=== PATIENT | female | born 1965 | race Caucasian/White ===

== ENCOUNTER 2025-01-06 06:37 | Day surgery (SDC) | payer MEDICAID, SELFPAY ==
[2025-01-05 11:29] VITALS: BMI 26.6
[2025-01-06] VITALS (13 sets, daily range): BP systolic 122–154; BP diastolic 71–130; PULSE 83–93; RESP 16–22; TEMP 36.5–36.7; O2SAT 93–98; BMI 26.7
[2025-01-06] MEDS: SODIUM CHLORIDE 0.9% 500 ML 500 ML 125 ML IV (07:44)
[2025-01-06] MEDS: fentaNYL CIT INJ 50 mCg/ML AMP 2ML (ASD USE ONLY) IVP (07:55)
[2025-01-06] MEDS: MIDAZOLAM INJ 1 MG/ML VIAL 2 ML (ASD USE ONLY) 2 MG IVP (08:04)
--- NOTE | 2025-01-06 09:29 | SUR.PHASEII ---
855 Pt more awake and alert. Denies pain or N/V. Abd remains soft. Pt cont to pass flatus. No active rectal bleeding seen. Marcin Po fluids. 0915 Pt assessment unchanged.No complaints. Abd remains soft-no bleeding seen. Pt remains seizure free. Pt amb with steady gait. assisted with pt getting dressed. DC instructions given. Pt and aware of no Plavix for 3 days. Both state understanding. Neuro device remains to left chest. Pt meets dc criteria-to home.
== END 2025-01-06 09:15 | disposition home or self-care (01) ==
PROVIDERS: PCP Registered Nurse; Referring Provider Surgery; Visit Provider Surgery
PROC: 0DBE8ZX Excision of Large Intestine, Via Natural or Artificial Opening Endoscopic, Diagnostic (ICD-10-PCS; CPT 45380; principal; 2025-01-06 08:00)
DX: D12.3 Benign neoplasm of transverse colon (principal); K62.5 Hemorrhage of anus and rectum; K56.690 Other partial intestinal obstruction; Z80.0 Family history of malignant neoplasm of digestive organs; F41.9 Anxiety disorder, unspecified; J44.9 Chronic obstructive pulmonary disease, unspecified; F32.A Depression, unspecified; E78.00 Pure hypercholesterolemia, unspecified; Z79.899 Other long term (current) drug therapy; Z79.02 Long term (current) use of antithrombotics/antiplatelets; D12.5 Benign neoplasm of sigmoid colon
CPT/HCPCS: 45385; 45381; 45380; A4649; J2250; J3010; J7999

== ENCOUNTER 2025-03-05 10:11 | Inpatient (IN) | payer MEDICAID, SELFPAY ==
--- NOTE | 2025-03-04 07:55 | EKG_ITS ---
[facility] Test Date: 2025-03-04 Pat Name: CHIRAG GUY Department: Room: - Gender: Female Gimp Tacker: JUAN JOSÉ : 1965 Requested By: Kana Mancini Order Number: [id number] Reading MD: Kana Mancini Measurements Intervals [place] Rate: 89 P: 33 NM: 108 QRS: 115 QRSD: 108 T: 61 QT: 387 QTc: 472 Interpretive Statements SINUS RHYTHM WITH SHORT NM INTERVAL INCOMPLETE RIGHT BUNDLE BRANCH BLOCK [90+ ms QRS DURATION, TERMINAL R IN V1/V2, 40+ ms S IN I/aVL/V4/V5/V6] POSSIBLE RIGHT VENTRICULAR HYPERTROPHY [SOME/ALL OF: PROMINENT R IN V1, LATE TRANSITION, RAD, JOAO, SSS] No previous ECG available for comparison /store/S0/[id number]/ecg/[id number].pdf
[2025-03-04 08:06] VITALS: BMI 28.5
[2025-03-04 09:54] LABS: Basophils # (Auto) 0.1 Thou/mm3 (0.0-0.2); Basophils % (Auto) 1 % (0-2.5); Eosinophils # (Auto) 0.1 Thou/mm3 (0.0-0.5); Eosinophils % (Auto) 1 % (0-10); Hematocrit 44.6 % (36.0-46.0); Hemoglobin 14.6 g/dL (12.0-16.0); Immature Granulocytes Auto 0.04 Thou/mm3 (0.00-0.00); Lymphocytes # (Auto) 2.1 Thou/mm3 (1.0-4.8); Lymphocytes % (Auto) 22 % (10-50); Mean Corpuscular HGB Conc 32.7 g/dl (31.0-37.0); Mean Corpuscular Hemoglobin 30.1 pg (25.0-35.0); Mean Corpuscular Volume 92 fL (80-100); Monocytes # (Auto) 0.6 Thou/mm3 (0.0-0.8); Monocytes % (Auto) 6 % (0-12); Neutrophils # (Auto) 7.0 Thou/mm3 (1.8-7.7); Neutrophils % (Auto) 70 % (37-80); Nucleated Red Blood Cell # 0.00 Thou/mm3 (0.00-0.00); Nucleated Red Blood Cell % 0 /100 WBC (0); Platelet Count 324 Thou/mm3 (140-440); RDW Standard Deviation 43.8 fL (36.4-46.3); Red Blood Count 4.85 Miln/mm3 (4.00-5.20); White Blood Count 9.9 Thou/mm3 (3.6-11.0)
[2025-03-04 10:06] LABS: Alanine Aminotransferase 26 U/L (10-49); Albumin, Serum 4.8 gm/dL (3.5-5.0); Albumin/Globulin Ratio 1.9 (1.2-2.2); Alkaline Phosphatase 174 U/L (46-116); Anion Gap 8 (7-16); Aspartate Amino Transferase 23 U/L (0-34); BUN/Creatinine Ratio 12 Ratio (12-20); Bilirubin,Total 0.3 mg/dL (0.3-1.2); Blood Urea Nitrogen 11 mg/dL (9-23); Calcium 9.7 mg/dL (8.3-10.6); Calcium (Corrected) 9.7 mg/dL (8.5-10.1); Carbon Dioxide 28.8 mMol/L (20.0-31.0); Chloride 107 mMol/L (98-107); Creatinine (Component) 0.9 mg/dL (0.6-1.3); Estimated Creatinine Clearance 66.0 mL/min (>60); Globulin 2.5 gm/dL (2.3-3.5); Glucose 103 mg/dL (74-106); Osmolality,Calculated 286 (275-295); Potassium 3.9 mMol/L (3.4-5.1); Sodium 144 mMol/L (136-145); Total Protein 7.3 gm/dL (5.7-8.2); eGFR > 60 See Note
[2025-03-05] VITALS (13 sets, daily range): BP systolic 93–125; BP diastolic 49–83; PULSE 84–96; RESP 14–23; TEMP 36.2–36.8; O2SAT 91–96; BMI 28.3
[2025-03-05] MEDS: RINGERS LACTATED 1000 ML 1,000 ML 20 ML IV (11:09)
--- NOTE | 2025-03-05 15:18 | SUR.PHASEI ---
pt received from OR in recovery bay 3. pt asleep but responds to voice, breathing unlabored on oxymask 8l, nasal airway in place. v/s stable. pt dressing to abd cdi. report received from Dr. Oconnell and Heike CERVANTES.
--- NOTE | 2025-03-05 15:18 | PD.SUROPNT ---
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 The bladder was densely adherent to sigmoid colon Anesthesia GETA Pathology / specimen Other (Sigmoid colon) Estimated Blood Loss 50 Condition Stable Disposition PACU Surgeon Kana Mancini MD Surgical Staff Operation Date: 03/05/25 12:40 Case cylinder head assemblerstore clerk cashier: Stephany Velarde
[2025-03-05] MEDS: HYDROmorphone 1 MG/ML PCA SYRINGE 30ML PCA (15:32)
[2025-03-05] MEDS: KCL 20 mEq/L in D5-1/2NS 20 MEQ/1,000 ML BAG 70 MEQ IV (15:49)
[2025-03-05] MEDS: ALBUTEROL RT 2.5 MG/3 ML NEBU INH (16:14)
--- NOTE | 2025-03-05 16:45 | SUR.PHASEII ---
pt asleep but responds to voice, breathing unlabored on nc 4l. v/s stable. pt dressing to abd cdi, abd binder in place. mac cath in place. sz precautions in place. report called to Alice CERVANTES. pt will be transferred to room at this time.
--- NOTE | 2025-03-05 17:42 | PC.NURSE ---
WIll hand off to shift coordinator nurse when patients wakes up to do admit questions and med req.
[2025-03-05] MEDS: ACETAMINOPHEN IVPB 1,000 MG/100 ML VIAL 250 MG IV (18:10)
[2025-03-05] MEDS: CEFOXITIN 2 GM in SODIUM CHLORIDE 0.9% (Popper) 50 ML IV (18:11)
--- NOTE | 2025-03-05 20:08 | PC.NURSE ---
called pharmacy to ask if they wanted me to hang IV tylenol since the first dose ordered for 1642 was given at 1809, Livia in pharmacy stated that they will adjust the time to give the second dose 6 hrs after the fisrt dose was given.
--- NOTE | 2025-03-05 20:16 | PC.NURSE ---
called Dr. Mancini to ask if he wanted me to give po meds to pt since pt is NPO. Per , pt could have po med with sip of water.
[2025-03-05] MEDS: ASCORBIC ACID 250 MG TABLET 500 MG PO (20:34)
[2025-03-05] MEDS: TOPIRAMATE 25 MG TABLET PO (20:34)
[2025-03-05] MEDS: DOCUSATE SOD 100 MG CAPSULE PO (20:34)
[2025-03-05] MEDS: ALBUTEROL/IPRATROPIUM (Duoneb) RT SOL 3 ML NEBU INH (23:00)
[2025-03-06] VITALS (12 sets, daily range): BP systolic 97–126; BP diastolic 65–85; PULSE 74–90; RESP 14–24; TEMP 36.1–36.5; O2SAT 93–98; BMI 28.3
[2025-03-06] MEDS: CEFOXITIN 2 GM in SODIUM CHLORIDE 0.9% (Popper) 50 ML IV ×4 (00:14→18:08)
[2025-03-06] MEDS: ACETAMINOPHEN IVPB 1,000 MG/100 ML VIAL 250 MG IV ×3 (00:14→12:13)
[2025-03-06] MEDS: ALBUTEROL/IPRATROPIUM (Duoneb) RT SOL 3 ML NEBU INH ×3 (06:02→23:06)
--- NOTE | 2025-03-06 09:13 | PD.SURPROG ---
Documentation for date of: 03/06/25 Subjective Subjective Narrative: Patient is seen and examined. She is complaining of incisional pain, controlled with SUPERVISOR MOLD CLEANING AND STORAGE. She denies nausea or vomiting. Has not passed flatus or bowel movement yet Exam Vital Signs Temp Pulse Resp BP Pulse Ox O2 Del Method O2 Flow Rate 97.1 F 90 17 100/85 H 94 L Nasal Cannula 2 03/06/25 08:00 03/06/25 08:00 03/06/25 08:00 03/06/25 08:00 03/06/25 08:00 03/06/25 08:00 03/06/25 08:00 Constitutional Constitutional: no acute distress Routine Abdominal Exam Comments: Abdomen is soft and mildly distended. Incision with dressings clean, dry and intact. Bowel sounds are absent today Assessment & Plan Assessment Additional comments: Postop day #1 status post exploratory laparotomy with sigmoid colectomy and repair of bladder injury Plan Continue IV antibiotics. Keep Gray catheter for 2 weeks. Start ice chips. Use incentive spirometer and increase ambulation PROCEDURES: Procedures Attempted laparoscopic, open sigmoid colectomy Repair of bladder injury
[2025-03-06] MEDS: ENOXAPARIN SOD INJ 40 MG/0.4 ML SYRINGE SC (09:50)
[2025-03-06] MEDS: NICOTINE PATCH 21 MG/24 HR PATCH.TD24 TOP (09:50)
[2025-03-06] MEDS: ZINC SULFATE 220 MG CAPSULE PO (09:51)
[2025-03-06] MEDS: ATORVASTATIN CALCIUM 20 MG TABLET 80 MG PO (09:51)
[2025-03-06] MEDS: ASCORBIC ACID 250 MG TABLET 500 MG PO ×2 (09:51→20:46)
[2025-03-06] MEDS: PROPRANOLOL 10 MG TABLET 20 MG PO (09:52)
[2025-03-06] MEDS: DOCUSATE SOD 100 MG CAPSULE PO ×2 (09:52→20:47)
[2025-03-06] MEDS: TOPIRAMATE 25 MG TABLET PO ×2 (09:52→20:46)
[2025-03-06] MEDS: KCL 20 mEq/L in D5-1/2NS 20 MEQ/1,000 ML BAG 50 MEQ IV (18:08)
[2025-03-07] VITALS (10 sets, daily range): BP systolic 103–122; BP diastolic 50–72; PULSE 71–107; RESP 13–22; TEMP 36.1–37; O2SAT 89–99
[2025-03-07] MEDS: CEFOXITIN 2 GM in SODIUM CHLORIDE 0.9% (Popper) 50 ML IV ×4 (00:59→17:43)
[2025-03-07] MEDS: HYDROmorphone 1 MG/ML PCA SYRINGE 30ML PCA ×2 (01:22→17:29)
--- NOTE | 2025-03-07 01:52 | PC.NURSE ---
19.2 ML of dilaudid wasted in the pyxis with Erica CERVANTES
[2025-03-07 06:06] LABS: Basophils # (Auto) 0.0 Thou/mm3 (0.0-0.2); Basophils % (Auto) 0 % (0-2.5); Eosinophils # (Auto) 0.1 Thou/mm3 (0.0-0.5); Eosinophils % (Auto) 1 % (0-10); Hematocrit 36.5 % (36.0-46.0); Hemoglobin 11.1 g/dL (12.0-16.0); Immature Granulocytes Auto 0.03 Thou/mm3 (0.00-0.00); Lymphocytes # (Auto) 2.0 Thou/mm3 (1.0-4.8); Lymphocytes % (Auto) 17 % (10-50); Mean Corpuscular HGB Conc 30.4 g/dl (31.0-37.0); Mean Corpuscular Hemoglobin 29.6 pg (25.0-35.0); Mean Corpuscular Volume 97 fL (80-100); Monocytes # (Auto) 0.8 Thou/mm3 (0.0-0.8); Monocytes % (Auto) 6 % (0-12); Neutrophils # (Auto) 9.0 Thou/mm3 (1.8-7.7); Neutrophils % (Auto) 75 % (37-80); Nucleated Red Blood Cell # 0.00 Thou/mm3 (0.00-0.00); Nucleated Red Blood Cell % 0 /100 WBC (0); Platelet Count 243 Thou/mm3 (140-440); RDW Standard Deviation 46.8 fL (36.4-46.3); Red Blood Count 3.75 Miln/mm3 (4.00-5.20); White Blood Count 11.9 Thou/mm3 (3.6-11.0)
[2025-03-07] MEDS: ZINC SULFATE 220 MG CAPSULE PO (08:06)
[2025-03-07] MEDS: ALBUTEROL/IPRATROPIUM (Duoneb) RT SOL 3 ML NEBU INH ×3 (08:07→22:36)
[2025-03-07] MEDS: PROPRANOLOL 10 MG TABLET 20 MG PO (08:07)
[2025-03-07] MEDS: DOCUSATE SOD 100 MG CAPSULE PO ×2 (08:08→20:10)
[2025-03-07] MEDS: TOPIRAMATE 25 MG TABLET PO ×2 (08:08→20:10)
[2025-03-07] MEDS: NICOTINE PATCH 21 MG/24 HR PATCH.TD24 TOP (08:08)
[2025-03-07] MEDS: ASCORBIC ACID 250 MG TABLET 500 MG PO ×2 (08:08→20:10)
[2025-03-07] MEDS: ENOXAPARIN SOD INJ 40 MG/0.4 ML SYRINGE SC (08:09)
--- NOTE | 2025-03-07 08:17 | PD.SURPROG ---
Documentation for date of: 03/07/25 Subjective Subjective Narrative: Patient is seen and examined. Pain is controlled with POWER TRANSFORMER REPAIR SUPERVISOR. She denies nausea or vomiting. She has not passed flatus or bowel movement yet Exam Vital Signs Temp Pulse Resp BP Pulse Ox O2 Del Method O2 Flow Rate 96.9 F 72 13 114/58 L 90 L Nasal Cannula 2 03/07/25 04:00 03/07/25 08:07 03/07/25 04:00 03/07/25 08:07 03/07/25 04:00 03/07/25 04:00 03/06/25 23:06 Constitutional Constitutional: no acute distress Routine Abdominal Exam Comments: Abdomen is soft and minimally distended. She has hypoactive bowel sounds. Incision with dressings clean, dry and intact Assessment & Plan Assessment Additional comments: Postop day #2 status post exploratory laparotomy with sigmoid colectomy and repair of bladder injury Plan Hep-Lock IV fluids. Start clear liquids PROCEDURES: Procedures Attempted laparoscopic, open sigmoid colectomy Repair of bladder injury
[2025-03-07] MEDS: ATORVASTATIN CALCIUM 20 MG TABLET 80 MG PO (08:27)
--- NOTE | 2025-03-07 11:48 | PC.SS ---
Grocery Store Associate (MAGED) Shonna met with the patient and partner of 15 years at the bedside to complete an initial assessment and discuss a discharge plan. Patient is alert and oriented to person, place, time, and situation, and provided verbal consent to participate in the assessment with life partner at bedside. The patient is post-op day #1, status post exploratory laparotomy with sigmoid colectomy and repair of bladder injury. Patient is Yesica Manuel, 59 y/o Thai-speaking female residing with her long-time partner, Regine, at [address] [place] [address]. The patient is receiving Social Security disability benefits. Patient designated her life partner, Regine Valdez, , as her surrogate medical decision maker. Patient reports that at baseline she is independent with no DME; she does not use oxygen at home (here she is at 2L nasal canula) and is not getting dialysis outpatient. Patient's pharmacy is [facility]. Patient's PCP is Dr. Willams. Patient's d/c plan is home, and will provide transportation. Surrogate medical decision maker: , Regine, Discharge plan: Home
[2025-03-07 15:11] LABS: Albumin, Serum 4.2 gm/dL (3.5-5.0); Anion Gap 9 (7-16); BUN/Creatinine Ratio 15 Ratio (12-20); Blood Urea Nitrogen 12 mg/dL (9-23); Calcium 9.1 mg/dL (8.3-10.6); Calcium (Corrected) 9.1 mg/dL (8.5-10.1); Carbon Dioxide 29.1 mMol/L (20.0-31.0); Chloride 108 mMol/L (98-107); Creatinine (Component) 0.8 mg/dL (0.6-1.3); Estimated Creatinine Clearance 72.4 mL/min (>60); Glucose 98 mg/dL (74-106); Magnesium 2.0 mg/dL (1.6-2.6); Osmolality,Calculated 290 (275-295); Phosphorous 2.1 mg/dL (2.4-5.1); Potassium 4.1 mMol/L (3.4-5.1); Sodium 146 mMol/L (136-145); eGFR > 60 See Note
--- NOTE | 2025-03-07 16:34 | PC.SS ---
Rounding note: Hep-Lock IV fluids. Start with clear liquids. d/c plan: home
--- NOTE | 2025-03-07 19:07 | PC.NURSE ---
Patient MIDDLE SCHOOL FOOTBALL COACH syringe and tubing was changed with BILLY Sosa at 1745pm. Remaining 26ml in med room was wasted with BILLY Sosa as well.
[2025-03-08] VITALS (13 sets, daily range): BP systolic 101–140; BP diastolic 58–76; PULSE 71–90; RESP 16–88; TEMP 36.1–36.4; O2SAT 91–100
[2025-03-08] MEDS: CEFOXITIN 2 GM in SODIUM CHLORIDE 0.9% (Popper) 50 ML IV ×4 (00:04→18:19)
[2025-03-08] MEDS: ALBUTEROL/IPRATROPIUM (Duoneb) RT SOL 3 ML NEBU INH ×3 (07:32→22:56)
[2025-03-08] MEDS: NICOTINE PATCH 21 MG/24 HR PATCH.TD24 TOP (08:19)
[2025-03-08] MEDS: DOCUSATE SOD 100 MG CAPSULE PO ×2 (08:21→20:15)
[2025-03-08] MEDS: ZINC SULFATE 220 MG CAPSULE PO (08:22)
[2025-03-08] MEDS: ASCORBIC ACID 250 MG TABLET 500 MG PO ×2 (08:22→20:15)
[2025-03-08] MEDS: ATORVASTATIN CALCIUM 20 MG TABLET 80 MG PO (08:22)
[2025-03-08] MEDS: PROPRANOLOL 10 MG TABLET 20 MG PO (08:23)
[2025-03-08] MEDS: ENOXAPARIN SOD INJ 40 MG/0.4 ML SYRINGE SC (08:24)
[2025-03-08] MEDS: TOPIRAMATE 25 MG TABLET PO ×2 (08:24→20:15)
[2025-03-08] MEDS: PANTOPRAZOLE 40 MG TABLET PO (08:27)
--- NOTE | 2025-03-08 11:52 | PD.SURPROG ---
Documentation for date of: 03/08/25 Subjective Subjective Narrative: Patient is seen and examined. Pain is well-controlled. She denies nausea or vomiting and tolerating clear liquids. She has not passed flatus or bowel movement yet Exam Vital Signs Temp Pulse Resp BP Pulse Ox O2 Del Method O2 Flow Rate 97.0 F 79 18 130/61 95 Nasal Cannula 3 03/08/25 08:00 03/08/25 08:23 03/08/25 08:00 03/08/25 08:23 03/08/25 08:00 03/08/25 08:00 03/08/25 08:00 Constitutional Constitutional: no acute distress Routine Abdominal Exam Comments: Abdomen is soft and very minimally distended. Incisions are clean, dry and intact. Bowel sounds are present and active Assessment & Plan Assessment Additional comments: Postop day #3 status post exploratory laparotomy with sigmoid colectomy and repair of bladder injury Plan Still awaiting for return of GI function. Will advance to full liquids PROCEDURES: Procedures Attempted laparoscopic, open sigmoid colectomy Repair of bladder injury
--- NOTE | 2025-03-08 19:49 | PC.NURSE ---
called Dr. Mancini to report that during shift change report, pt complained of burning sensation and pain in the private area, stated that it is fine because she is already on abx and she has a mac catheter. No new orders received for pt at this time.
[2025-03-08] MEDS: HYDROmorphone 1 MG/ML PCA SYRINGE 30ML PCA (20:06)
--- NOTE | 2025-03-08 20:17 | PC.NURSE ---
dialudid syringe changed, 20 mls of dialudid wasted in pyxis with Ashley CERVANTES.
--- NOTE | 2025-03-08 23:04 | PC.NURSE ---
called Dr. Mancini to [phone] at 2346 pm to inform that pt had a BM and there was old blood and fresh bright red blood in the stool. stated that that's normal. No new orders received at this time.
[2025-03-09] VITALS (11 sets, daily range): BP systolic 113–143; BP diastolic 61–80; PULSE 71–90; RESP 16–94; TEMP 35.9–36.7; O2SAT 90–99
[2025-03-09] MEDS: CEFOXITIN 2 GM in SODIUM CHLORIDE 0.9% (Popper) 50 ML IV ×4 (02:37→18:16)
[2025-03-09] MEDS: ALBUTEROL/IPRATROPIUM (Duoneb) RT SOL 3 ML NEBU INH ×3 (06:24→22:47)
[2025-03-09] MEDS: NICOTINE PATCH 21 MG/24 HR PATCH.TD24 TOP (09:40)
[2025-03-09] MEDS: TOPIRAMATE 25 MG TABLET PO ×2 (09:41→21:56)
[2025-03-09] MEDS: ASCORBIC ACID 250 MG TABLET 500 MG PO ×2 (09:41→21:56)
[2025-03-09] MEDS: ATORVASTATIN CALCIUM 20 MG TABLET 80 MG PO (09:41)
[2025-03-09] MEDS: ZINC SULFATE 220 MG CAPSULE PO (09:41)
[2025-03-09] MEDS: PROPRANOLOL 10 MG TABLET 20 MG PO (09:42)
[2025-03-09] MEDS: ENOXAPARIN SOD INJ 40 MG/0.4 ML SYRINGE SC (09:42)
[2025-03-09] MEDS: PANTOPRAZOLE 40 MG TABLET PO (09:42)
--- NOTE | 2025-03-09 10:19 | PC.NURSE ---
Upon start of shift, NEWSPAPER DISTRIBUTOR SUPERVISOR pump history not cleared since 03/05/25.
[2025-03-09 10:22] LABS: Basophils # (Auto) 0.0 Thou/mm3 (0.0-0.2); Basophils % (Auto) 0 % (0-2.5); Eosinophils # (Auto) 0.2 Thou/mm3 (0.0-0.5); Eosinophils % (Auto) 2 % (0-10); Hematocrit 34.9 % (36.0-46.0); Hemoglobin 11.6 g/dL (12.0-16.0); Immature Granulocytes Auto 0.03 Thou/mm3 (0.00-0.00); Lymphocytes # (Auto) 1.3 Thou/mm3 (1.0-4.8); Lymphocytes % (Auto) 13 % (10-50); Mean Corpuscular HGB Conc 33.2 g/dl (31.0-37.0); Mean Corpuscular Hemoglobin 30.6 pg (25.0-35.0); Mean Corpuscular Volume 92 fL (80-100); Monocytes # (Auto) 0.8 Thou/mm3 (0.0-0.8); Monocytes % (Auto) 8 % (0-12); Neutrophils # (Auto) 7.8 Thou/mm3 (1.8-7.7); Neutrophils % (Auto) 77 % (37-80); Nucleated Red Blood Cell # 0.00 Thou/mm3 (0.00-0.00); Nucleated Red Blood Cell % 0 /100 WBC (0); Platelet Count 248 Thou/mm3 (140-440); RDW Standard Deviation 42.6 fL (36.4-46.3); Red Blood Count 3.79 Miln/mm3 (4.00-5.20); White Blood Count 10.1 Thou/mm3 (3.6-11.0)
[2025-03-09 10:42] LABS: Albumin, Serum 4.0 gm/dL (3.5-5.0); Anion Gap 8 (7-16); BUN/Creatinine Ratio 6 Ratio (12-20); Blood Urea Nitrogen < 5 mg/dL (9-23); Calcium 9.5 mg/dL (8.3-10.6); Calcium (Corrected) 9.5 mg/dL (8.5-10.1); Carbon Dioxide 30.8 mMol/L (20.0-31.0); Chloride 103 mMol/L (98-107); Creatinine (Component) 0.8 mg/dL (0.6-1.3); Estimated Creatinine Clearance 72.4 mL/min (>60); Glucose 124 mg/dL (74-106); Magnesium 2.1 mg/dL (1.6-2.6); Osmolality,Calculated 281 (275-295); Phosphorous 3.2 mg/dL (2.4-5.1); Potassium 3.8 mMol/L (3.4-5.1); Sodium 142 mMol/L (136-145); eGFR > 60 See Note
--- NOTE | 2025-03-09 11:01 | PD.SURPROG ---
Documentation for date of: 03/09/25 Subjective Subjective Narrative: Patient is seen and examined. She is tolerating liquid diet without nausea or vomiting. She started passing flatus and had bowel movements Exam Vital Signs Temp Pulse Resp BP Pulse Ox O2 Del Method O2 Flow Rate 96.8 F 90 21 H 126/74 93 L Room Air 1 03/09/25 07:40 03/09/25 09:42 03/09/25 07:59 03/09/25 09:42 03/09/25 07:40 03/09/25 07:40 03/09/25 06:24 Constitutional Constitutional: no acute distress Routine Abdominal Exam Comments: Abdomen is soft and not distended. Incision is clean, dry and intact Assessment & Plan Assessment Additional comments: Postop day #4 status post exploratory laparotomy with sigmoid colectomy and repair of bladder injury Plan Advance to soft diet. If tolerating soft diet and continues to have bowel movement, possible discharge home tomorrow PROCEDURES: Procedures Attempted laparoscopic, open sigmoid colectomy Repair of bladder injury
[2025-03-09] MEDS: DOCUSATE SOD 100 MG CAPSULE PO (21:56)
[2025-03-10] VITALS: BP 144/78; PULSE 75; RESP 17; TEMP 36.3; O2SAT 93
[2025-03-10] MEDS: CEFOXITIN 2 GM in SODIUM CHLORIDE 0.9% (Popper) 50 ML IV ×2 (00:08→05:16)
[2025-03-10 04:00] VITALS: BP 138/73; PULSE 76; RESP 17; TEMP 36.2; O2SAT 93
[2025-03-10] MEDS: ALBUTEROL/IPRATROPIUM (Duoneb) RT SOL 3 ML NEBU INH (07:37)
[2025-03-10 07:41] VITALS: PULSE 82; PULSE 83; RESP 18; O2SAT 93; O2SAT 97
[2025-03-10 08:00] VITALS: BP 145/78; PULSE 83; RESP 18; TEMP 36.2; O2SAT 93
[2025-03-10] MEDS: NICOTINE PATCH 21 MG/24 HR PATCH.TD24 TOP (08:05)
[2025-03-10 08:06] VITALS: BP 145/78; PULSE 83
[2025-03-10] MEDS: ENOXAPARIN SOD INJ 40 MG/0.4 ML SYRINGE SC (08:06)
[2025-03-10] MEDS: PROPRANOLOL 10 MG TABLET 20 MG PO (08:06)
[2025-03-10] MEDS: ZINC SULFATE 220 MG CAPSULE PO (08:07)
[2025-03-10] MEDS: DOCUSATE SOD 100 MG CAPSULE PO (08:07)
[2025-03-10] MEDS: PANTOPRAZOLE 40 MG TABLET PO (08:07)
[2025-03-10] MEDS: TOPIRAMATE 25 MG TABLET PO (08:07)
[2025-03-10] MEDS: ASCORBIC ACID 250 MG TABLET 500 MG PO (08:07)
--- NOTE | 2025-03-10 11:31 | PD.SURDS ---
Planned Discharge Date 03/10/25 DS: Providers Provider Date of admission: 03/05/25 10:11 Primary care physician: CHRISTINA Live Admitting Provider: Kana Mancini MD Attending Provider on Admission: Kana Mancini MD Attending Provider on DC: Kana Mancini MD Discharging Provider: Kana Mancini MD Diagnosis Problem List Completed Was Problem List Reviewed/Reconciled?: Yes Hospital Course Patient underwent exploratory laparotomy, sigmoid colectomy with repair of bladder injury. Postoperatively her pain was initially controlled with SUPERINTENDENT COMMISSARY and switch to oral pain medication. She was started on clear liquids and her diet was gradually advanced to soft diet. She was eating and tolerating diet well without nausea or vomiting. She started passing flatus and had multiple bowel movements. A Gray catheter was kept in place as patient had repair of bladder injury. She has remained hemodynamically stable and afebrile throughout hospitalization. Her incision is clean, dry and intact. She is being discharged home in stable condition. Status at Discharge Functional status at discharge: independent ambulation Overall status at discharge: patient is progressing back to baseline Exam Vital Signs Temp Pulse Resp BP Pulse Ox O2 Del Method O2 Flow Rate 97.1 F 83 18 145/78 H 93 L Nasal Cannula 2 03/10/25 08:00 03/10/25 08:06 03/10/25 08:00 03/10/25 08:06 03/10/25 08:00 03/10/25 08:00 03/10/25 08:00 Constitutional Constitutional: no acute distress Routine Abdominal Exam Comments: Abdomen is soft and nondistended. Incision is clean, dry and. Bowel sounds are present and active Discharge Plan Plan Patient Disposition: HOME (Self Care) Prescriptions/Referrals Prescriptions/Med Rec: New hydrocodone-acetaminophen 10-325 mg Tablet 1 tab PO Q6HR MDD 4 PRN (Reason: pain (scale score 7-10)) Qty: 30 0RF ascorbic acid (vitamin C) [Vitamin C] 250 mg Tablet 500 mg PO BID Qty: 60 0RF docusate sodium 100 mg Capsule 100 mg PO BID Qty: 40 0RF zinc sulfate 50 mg zinc (220 mg) Capsule 220 mg PO QDAY Qty: 30 0RF Continued clopidogrel [Plavix] 75 MG tablet 75 mg PO QDAY Qty: 0 atorvastatin 80 mg tablet 80 mg PO DAILY Patient Comments: TAKE 1 TABLET BY MOUTH EVERY DAY omeprazole 20 mg capsule,delayed release(DR/EC) 20 mg PO QDAY Patient Comments: TAKE 1 CAPSULE BY MOUTH EVERY DAY paroxetine HCl 40 mg tablet 40 mg PO QDAY Patient Comments: TAKE 1 TABLET BY MOUTH EVERY DAY THE MORNING ORALLY ONCE A DAY propranolol 20 mg tablet 20 mg PO QDAY Patient Comments: TAKE 1 TABLET BY MOUTH TWICE A DAY buspirone 15 mg tablet 15 mg PO BID Patient Comments: TAKE 1 TABLET BY MOUTH TWICE A DAY topiramate [Topamax] 25 mg tablet 25 mg PO BID Referrals: Joyce Willams, EXPLORATION ENGINEER [Primary Care Provider] Patient/Caregiver Discharge Instructions Discharge Activity: activity as tolerated Print Language: Mongolian Activity Restrictions/Additional Instructions: May shower. Avoid lifting, straining, pulling or pushing for 8 weeks. Wear abdominal binder at all times. May take over the counter laxatives if no bowel movement in 2 days[address] Follow up with Dr. Mancini in 2 weeks, call [phone] for an appointment. Continue soft diet for 1 week then advance diet as tolerated. Empty Gray bag daily and as needed. Stand Alone Forms: [employer] Info., Patient Portal Info Letter Discharge Order Discharge Orders: Discharge (Routine); Ordered 03/10/25 Ordered By: Kana Mancini PROCEDURES: Procedure Date 03/05/25 Procedures Attempted laparoscopic, open sigmoid colectomy Repair of bladder injury
[2025-03-10 12:00] VITALS: BP 137/82; PULSE 86; RESP 92; TEMP 36.2; O2SAT 92
== END 2025-03-10 12:25 | disposition home or self-care (01) | DRG 231 ==
LOC: S2EX 15:06 → S3SX 17:19
PROVIDERS: Anesthesiology; Admitting Provider Surgery; PCP Registered Nurse; Referring Provider Surgery; Visit Provider Surgery
PROC: 0DTN0ZZ Resection of Sigmoid Colon, Open Approach (ICD-10-PCS; CPT 49320; principal; 2025-03-05 12:30)
DX: D49.0 Neoplasm of unspecified behavior of digestive system (principal); S37.20XA Unspecified injury of bladder, initial encounter; Z88.0 Allergy status to penicillin; Z88.5 Allergy status to narcotic agent; Z88.6 Allergy status to analgesic agent; Z88.8 Allergy status to other drugs, medicaments and biological substances
CPT/HCPCS: 36415; 80053; 80069; 83735; 85025; 93005; 94640; 94664; A4217; A4649; A9270; J0131; J0694; J1171; J1650; J2250; J2470; J2704; J3010; J3480; J3490; J7050; J7120